=== PATIENT | male | born 1950 | race Caucasian/White ===

== ENCOUNTER 2022-09-18 14:35 | Emergency (ER) | payer OTHER, SELFPAY ==
[2022-09-18 14:37] VITALS: BP 143/66; PULSE 81; RESP 12; TEMP 34.9; O2SAT 96; BMI 34.4
[2022-09-18 14:52] VITALS: BP 134/66; PULSE 80; RESP 21; O2SAT 92
--- NOTE | 2022-09-18 15:18 | CT_ITS ---
STUDY: CT BRAIN WITHOUT CONTRAST REASON FOR EXAM: Male, 72 years old. Pain RADIATION DOSAGE (If Supplied By Facility): CTDIvol = ( 44.99 ) mGy, DLP = ( 829.85 ) mGycm TECHNIQUE: Transaxial CT imaging of the brain was performed without administration of intravenous contrast material. Individualized dose optimization techniques were used for this CT. COMPARISON: No relevant priors. FINDINGS: Normal soft tissue structures. Normal calvarium. Normal size ventricles and extra-axial spaces for the patient''s age. Normal white matter tracts of the cerebral hemispheres. Normal basal ganglia and thalami. Normal brainstem. Normal cerebellum. There is no intracranial hemorrhage. There are no findings of an acute ischemic infarction. Normal visualized paranasal sinuses. CT/Brain/Head without Contrast IMPRESSION: Normal unenhanced CT scan of the brain. Electronically Signed: Linden De Souza MD at 16:26 EDT ,
--- NOTE | 2022-09-18 15:20 | EX.ED.VIS.HA ---
HPI History of Present Illness Chief Complaint: Headache Informant: patient Onset/Context/Timing Onset: Weeks (1) Context: Sudden Timing: Continuous and Waxes and wanes Quality -Headache: Positive for Sharp Location: Left side of head Worsened by: Walking and activity Relieved by: Nothing Associated Symptoms/Injury Associated Symptoms: Positive for Fever and Numbness; Negative for Nausea, Vomiting, Sore Throat, Sinus Pressure, Tingling, Preceding Aura, Visual Changes, Blurred Vision, Photophobia or Visual Loss Narrative Narrative: Patient presents with headache that has been waxing and waning over the past week. Patient states it came on rather suddenly. Patient states it is constant. Patient describes the pain as sharp. Patient states pain is over the left side of his head. Patient states it is worse with walking. Patient states he did have a subjective fever earlier in the week. Currently, patient denies any fevers. Patient states his blood pressure and blood sugar have been going up over the last week. Patient admits to some numbness and tingling in his fingers and toes. Patient also admits to some generalized fatigue and weakness. states he has also had some difficulty with his handwriting over the past week. also states patient has been forgetful over the last week. Patient states he saw his primary care physician for this earlier in the week drawn. Patient states that his primary care physician then referred him to the emergency department today for ongoing pain. [facility] Medical History (Updated 09/18/22 @ 19:[address] Todd Infante DO) Diabetes Hypertension Medical History no medical history Allergy/AdvReac Type Severity Reaction Status Date / Time No Known Allergies Allergy Verified 09/18/22 14:39 Surgical History (Updated 09/18/22 @ 15:[address] Todd Infante DO) Hx of appendectomy Hx of inguinal herniorrhaphy Hx of tonsillectomy Social History Smoking Status: Never smoker ROS ROS ED Constitutional Constitutional ED: Reports fever(s) and subjective; Denies chills Eyes Eyes: Denies blurry vision or change in vision ENT ENT ED: Denies rhinorrhea or sore throat Cardiovascular Cardiovascular: Denies chest pain or palpitations Respiratory/Chest Respiratory/Chest: Reports dyspnea; Denies cough Gastrointestinal Gastrointestinal: Denies nausea or vomiting Genitourinary Genitourinary ED: Denies dysuria or hematuria Musculoskeletal Musculoskeletal: Denies back pain or neck pain Integumentary Denies abscess or rash Neurologic Neurologic: Reports headache(s) and weakness Allergic/Immunologic Allergic/Immunologic ED: Denies mouth swelling or urticaria EXAM Physical Exam Const Vital Signs: 09/18/22 14:37 09/18/22 14:52 09/18/22 18:13 Temperature 94.9 F L Temperature Source Temporal Pulse Rate 81 80 74 Respiratory Rate 12 21 H 17 Respiratory Pattern Normal Blood Pressure 143/66 H 134/66 H Blood Pressure Mean 91 88 Pulse Ox 96 92 Oxygen Delivery Method Room Air Room Air Oxygen Flow Rate (L/min) 09/18/22 16:36 09/18/22 17:27 09/18/22 18:32 Temperature Temperature Source Pulse Rate 80 79 Respiratory Rate 16 Respiratory Pattern Blood Pressure 144/75 H 134/74 H Blood Pressure Mean 98 94 Pulse Ox 89 92 Oxygen Delivery Method Room Air Room Air Nasal Cannula Oxygen Flow Rate (L/min) 2 Positive well nourished, well developed and obese General Appearance ED: well developed and NAD Nutritional Appearance: obese HEENT Reports moist mucous membranes atraumatic; Negative for temporal artery tenderness Neck supple and no JVD Resp normal respiratory effort and clear to auscultation bilaterally Cardio regular rate and regular rhythm GI normal to inspection, nondistended, normoactive bowel sounds and non-tender Palpation: soft Extremity normal to inspection General Extremety ED: Negative for tenderness Neuro oriented x3, CN's II-XII intact bilaterally and no sensory deficits noted Sensorium / Orientation: alert Motor Exam: strength 5/5 throughout Psych mental status grossly normal Skin no rashes or lesions noted MDM MDM MDM Narrative Medical decision making narrative: Differential diagnosis includes migraine headache, temporal arteritis, intracranial bleeding, cluster headache, tension headache, uncontrolled diabetes, and hypertension. CT scan of the brain will be obtained to assess for intracranial bleeding. CBC will be obtained to assess for leukocytosis and anemia. Basic metabolic profile will be obtained to assess for renal function and electrolyte abnormality. Sed rate and CRP will be obtained to assess for inflammatory markers for temporal arteritis. History & Record Review Discussion w/independent historian: Patient and Family Additional record(s) reviewed:: Prior labs Lab Data Attestation: I reviewed the patient's lab results. Lab results narrative: CBC was reviewed and was within normal limits. Basic metabolic profile was reviewed. Potassium was slightly low at 3.3. Sed rate was reviewed and was normal at 14. C-reactive protein was reviewed and was slightly elevated at 4.44. Arterial blood gas was reviewed. pH was 7.40, PCO2 was 47.4, PO2 was 60.4, bicarb was 29.6, and O2 saturation was 90.5 on room air. Labs: Laboratory Results - last 24 hr 09/18/22 15:40 WBC 8.0 RBC 4.61 Hgb 14.2 Hct 43.3 MCV 93.9 MCH 30.8 MCHC 32.8 RDW Std Deviation 41.3 RDW Coeff of Alex 12.0 Plt Count 320 MPV 9.8 Immature Gran % (Auto) 0.400 Neut % (Auto) 64.2 Lymph % (Auto) 24.5 [place] % (Auto) 8.5 Eos % (Auto) 1.5 Baso % (Auto) 0.9 Absolute Neuts (auto) 5.2 Absolute Lymphs (auto) 1.96 Nucleated RBC % 0 ESR 14 Sodium 137 Potassium 3.2 L Chloride 100 Carbon Dioxide 31.0 Anion Gap 6 BUN 19 H Creatinine 0.90 Estim Creat Clear Calc 70.72 Est GFR (MDRD) Af Amer 107 Est GFR (MDRD) Non-Af 88 BUN/Creatinine Ratio 21.2 H Glucose 193 H Calcium 9.0 C-React Prot Ext Range 4.44 H ABG Data ABG results: ABG 09/18/22 18:22 Specimen Type ART Sample Site L Radial pH 7.40 Bicarbonate Actual 29.6 H Total CO2 31 Base Excess 5 H O2 Saturation 91 L ABG pCO2 47.4 H ABG pO2 60 L Misha Test Positive O2 Delivery Device Room Air Radiography CTA PE Study: No Evidence of PE and No Evidence of Dissection Diagnostic Testing: Clinical Impression(s) from Imaging Studies Brain CT 09/18/22 15:18 IMPRESSION: Normal unenhanced CT scan of the brain. Electronically Signed: Linden De Souza MD at 16:26 EDT , Chest CTA 09/18/22 17:55 IMPRESSION: Significantly limited as above. No demonstrated pulmonary embolism or arterial dissection. Significantly low lung volumes. Patchy scattered areas of atelectasis or scarring. Abnormalities in the visualized upper abdomen, see above. Electronically Signed: Linden De Souza MD at 18:59 EDT , CT scan of the brain was obtained. There is no acute intracranial abnormality. This was interpreted by the radiologist and was also independently reviewed by myself. CTA of the chest was obtained. There is no evidence of pulmonary embolism or arterial dissection. There is some atelectasis and scarring in the lung bases. There is cholelithiasis noted. This was interpreted by the radiologist and was also independently reviewed by myself. Treatment and Re-Evaluation Narrative: Patient was given Reglan and Benadryl here. Patient states his headache has resolved. However, when I was in the room with his pulse oximeter dropped into the 80s with a good waveform. Because of this, arterial blood gas was ordered along with CTA of the chest rule out pulmonary embolism and pneumonia. Patient was also ordered a DuoNeb aerosol. Patient was feeling better after aerosol. Patient was able to ambulate here in the emergency department and maintain oxygen saturation 92%. Patient feels better and wants to go home. Patient was advised of his findings. Patient was instructed to follow-up with his primary care physician in 5 to 7 days. Patient was instructed to return if worse in any way. Patient understood and was agreeable with the plan. All questions were answered. Discharge Plan Triage Chief Complaint: Headache ED Provider: Todd Infante Dx/Rx/DC Orders Clinical Impression: Diabetes, Headache Instructions: ED Headache Unspecified Primary Care Provider: Rishi Clark Referrals: Rishi Clark, [Primary Care Provider] -
[2022-09-18] MEDS: DiphenhydrAMINE 50 MG/ML Syringe 25 MG IV (15:53)
[2022-09-18] MEDS: Metoclopramide 10 MG/2 ML Vial IV (15:54)
[2022-09-18 15:57] LABS: Absolute Lymphocyte Count 1.96 X10^3/uL (0.83-4.51); Absolute Neutrophil Count 5.2 X10^3/uL (2.0-7.7); Basophil# 0.07 X10^3/uL; Basophil% 0.9 % (0-1); Eosinophil# 0.12 X10^3/uL; Eosinophils% 1.5 % (0-5); Hematocrit 43.3 % (40-54); Hemoglobin 14.2 g/dL (13.0-16.5); Lymphocyte # 1.96 X10^3/ul (0.83-4.51); Lymphocyte % 24.5 % (19-41); Mean Corp Hgb Conc 32.8 g/dL (32-36); Mean Corpuscular Hgb 30.8 pg (27.0-32.0); Mean Corpuscular Volume 93.9 fL (80-94); Mean Platelet Vol. 9.8 fl (6.2-12.0); Monocyte# 0.68 X10^3/uL; Monocyte% 8.5 % (0-10); NRBC Flagged by Analyzer 0 % (0-5); Neutrophil # 5.15 X10^3/uL (2.7-7.7); Neutrophil % 64.2 % (47-70); Platelet Count 320 K/mm3 (150-450); RBC Distribution Width SD 41.3 fl (35.1-43.9); Red Blood Count 4.61 M/mm3 (4.6-6.2)
[2022-09-18 16:17] LABS: Erythrocyte Sedimentation Rate 14 mm/hr (0-20)
[2022-09-18 16:36] VITALS: BP 144/75; PULSE 80; RESP 16; O2SAT 89
[2022-09-18 16:37] LABS: Anion Gap 6 (5-15); BUN 19 mg/dL (7-18); BUN/Creat Ratio 21.2 RATIO (10-20); CRP 4.44 mg/L (0.0-3.0); Chloride 100 mmol/L (98-107); EST Glomerular Filtration Rate 88 mL/min (>60); Est Glom Filt Rate - Afr Amer 107 mL/min (>60); Estimated Creatinine Clearance 70.72 ml/min; Glucose 193 mg/dL (74-106); Potassium 3.2 mmol/L (3.5-5.1); Sodium Level 137 mmol/L (136-145)
--- NOTE | 2022-09-18 17:55 | CT_ITS ---
STUDY: CTA CHEST REASON FOR EXAM: Male, 72 years old. Dyspnea RADIATION DOSAGE (If Supplied By Facility): CTDIvol = ( 15.34 ) mGy, DLP = ( 1052.05 ) mGycm TECHNIQUE: The examination was performed with the intravenous administration of IV 100mL [id number]-[id number]. Post-processing of the angiographic images was performed, with multiplanar reformation and 3D reconstruction. Individualized dose optimization techniques were used for this CT. COMPARISON: None. FINDINGS: Exam is limited by patient motion causing streak artifact. Normal enhancement of the main pulmonary artery and right and left pulmonary arteries. Normal enhancement of the bilateral peripheral pulmonary arteries. There is no demonstrated pulmonary embolism. Normal thoracic aorta and visualized great vessels. There is no demonstrated aortic dissection. Normal heart and pericardium. Normal mediastinum. Normal hilar regions. Normal visualized trachea and bronchi. The lungs are under expanded. There are scattered small areas of probable pulmonary parenchymal scarring, but no focal infiltrates or effusions. There are degenerative changes of thoracic spine. Limited views through the upper abdomen show cholelithiasis and probable hemangioma in the right hepatic lobe. Consider further evaluation with dynamic contrast CT of the liver. CT/CTA Chest W/WO Contrast IMPRESSION: Significantly limited as above. No demonstrated pulmonary embolism or arterial dissection. Significantly low lung volumes. Patchy scattered areas of atelectasis or scarring. Abnormalities in the visualized upper abdomen, see above. Electronically Signed: Linden De Souza MD at 18:59 EDT ,
[2022-09-18] MEDS: Potassium Chloride Oral Tablet 20 MEQ 40 MEQ PO (18:04)
[2022-09-18] MEDS: Ipratropium/Albuterol Sulfate 3 ML AMPUL.NEB INHALATION (18:11)
[2022-09-18 18:13] VITALS: PULSE 74; RESP 17
[2022-09-18 18:25] LABS: Allen Test Positive; Base Excess 5 mmol/L (-2 to +2); Bicarbonate 29.6 mmol/L (22-26); Blood Gas Specimen Type ART; O2 Delivery Device Room Air; PO2 60 mmHG (75-100); SITE L Radial; SO2 91 % (95-99); Total Carbon Dioxide 31 mmol/L; pCO2 47.4 mmHg (35-45)
[2022-09-18 18:32] VITALS: BP 134/74; PULSE 79; O2SAT 92
[2022-09-18 19:24] VITALS: O2SAT 89
== END 2022-09-18 19:52 | disposition home or self-care (01) ==
PROVIDERS: Emergency Provider Emergency Medicine; PCP Family Medicine; Visit Provider Emergency Medicine
DX: E11.9 Type 2 diabetes mellitus without complications (principal); R51.9 Headache, unspecified; R50.9 Fever, unspecified; I10 Essential (primary) hypertension; R20.0 Anesthesia of skin; R20.2 Paresthesia of skin
CPT/HCPCS: 36600; 70450; 71275; 80048; 82803; 85025; 85652; 86140; 94640; 96374; 96375; 99283; J7030; Q9967; A4216